=== PATIENT | female | born 1985 | race Two or more races ===

== ENCOUNTER 2021-12-08 08:18 | Observation (INO) | payer SELFPAY ==
[2021-12-08] MEDS ORDERED: PREN1TAB71 OR (10:41)
== END 2021-12-08 11:15 | disposition home or self-care (01) ==
LOC: LDRP 08:18 → UNDOADMOB 08:18 → LDRP 10:40
PROVIDERS: ADMIT Obstetrics & Gynecology; ATTEND Obstetrics & Gynecology
DX: O24.419 Gestational diabetes mellitus in pregnancy, unspecified control (principal); Z3A.32 32 weeks gestation of pregnancy
CPT/HCPCS: 59025; 76818; 81002; 82948; G0378

== ENCOUNTER 2021-12-12 08:00 | Observation (INO) | payer SELFPAY ==
[~2021-12-12] VITALS: Ht 165.1 cm; Wt 102.1 kg
[~2021-12-12 08:00] MED LIST: PREN1TAB71 OR
== END 2021-12-12 09:47 | disposition home or self-care (01) ==
LOC: UNDOADMOB 08:00 → LDRP 08:00
PROVIDERS: ADMIT Obstetrics & Gynecology; ATTEND Obstetrics & Gynecology
DX: O24.419 Gestational diabetes mellitus in pregnancy, unspecified control (principal); Z3A.33 33 weeks gestation of pregnancy
CPT/HCPCS: 59025; 76818; 81002; 82948; 82962; 94760; G0378

== ENCOUNTER 2022-01-21 04:17 | Inpatient (IN) | payer SELFPAY ==
[2022-01-20 10:29] LABS: Basophils # (auto) 0 10 ^3/uL (0-0.2); Basophils % (auto) 0.3 % (0.0-2.0); Eosinophils # (auto) 0.1 10 ^3/uL (0-0.8); Eosinophils % (auto) 0.6 % (0.0-7.0); Hematocrit 34.7 % (36.0-46.0); Hemoglobin 11.7 g/dL (12.2-16.2); Lymphocytes # (auto) 1.7 10 ^3/uL (0.4-5.4); Lymphocytes % (auto) 19.4 % (10.0-50.0); Mean Corpuscular Hemoglobin 30.6 pg (28.0-32.0); Mean Corpuscular Hgb Conc. 33.6 g/dL (32.0-36.0); Mean Corpuscular Volume 91.2 fL (80.0-100.0); Monocytes # (auto) 0.4 10 ^3/uL (0-1.3); Monocytes % (auto) 4.5 % (0.0-12.0); Neutrophils # (auto) 6.5 10 ^3/uL (1.6-8.6); Neutrophils % (auto) 75.2 % (37.0-80.0); Red Blood Cells 3.81 10^6/uL (4.0-5.20); Red Cell Distribution Width 13.7 % (11.8-14.3); White Blood Cell 8.7 10^3/uL (4.4-10.8)
[2022-01-20 10:45] LABS: Potassium 3.8 mmol/L (3.5-5.1)
[2022-01-20 10:53] LABS: Albumin 2.9 g/dL (3.4-5.0); Bilirubin, Total 0.6 mg/dL (0.2-1.0); Total Protein 6.7 g/dL (6.4-8.2)
[2022-01-20 10:53] LABS: Urine Bacteria FEW /hpf (None Seen); Urine Blood 2+ /uL (Negative); Urine Mucus FEW (None Seen); Urine Specific Gravity 1.019 (1.001-1.035); Urine WBC 3 /hpf (0 - 5)
[2022-01-20 10:58] LABS: INR 0.88 (0.9-1.15); Partial Thromboplastin Time 27.8 sec (24.6-33.4)
[2022-01-20 11:01] LABS: Alcohol, Urine < 3.0 mg/dL (0-10); Amphetamine Screen, Urine NEGATIVE (NEGATIVE); Barbiturate Scree,Urine NEGATIVE (NEGATIVE); Benzodiazephine Screen, Urine NEGATIVE (NEGATIVE); Cannabinoid Screen, Urine NEGATIVE (NEGATIVE); Cocaine Screen, Urine NEGATIVE (NEGATIVE); Opiate Scree,Urine NEGATIVE (NEGATIVE); Phencyclidine Screen, Urine NEGATIVE (NEGATIVE)
[~2022-01-21] VITALS: Ht 167.6 cm; Wt 102.1 kg
[2022-01-21] VITALS (13 sets, daily range): BP systolic 100–129; BP diastolic 62–80
[2022-01-21] MEDS ORDERED: ceFAZolin 1GM/50ML 50 ML IV ONE (04:30)
[2022-01-21] MEDS ORDERED: METOCLOPRAMIDE HCL 5MG/ml INJ 2ml VIAL IV ONE (04:30)
[2022-01-21] MEDS ORDERED: LACTATED RINGER'S 1,000 ML IV ONE (04:30)
[2022-01-21] MEDS: LACTATED RINGER'S 1,000 ML IV SCH ×2 (04:30→12:30)
[2022-01-21] MEDS ORDERED: SODIUM CITR/CITRIC ACID ORAL SOLN 30 ML PO ONE (04:30)
[2022-01-21 06:06] LABS: RPR Non Reactive (Non Reactive)
[2022-01-21] MEDS ORDERED: fentaNYL CITRATE 100 MCG/2 ML VL ONE (07:24)
[2022-01-21] MEDS ORDERED: MORPHINE SULF PF 5 MG/10 ML VIAL ONE (07:24)
[2022-01-21] MEDS ORDERED: ONDANSETRON HCL 4 MG/2 ML VIAL IV PRN ×5 (07:30→09:15)
[2022-01-21] MEDS ORDERED: ceFAZolin 1GM/50ML 50 ML IV SCH (07:30)
[2022-01-21] MEDS ORDERED: LACT. RINGERS/OXYTOCIN 20UNITS 1,000 ML IV ONE ×2 (07:30→09:00)
[2022-01-21] MEDS ORDERED: DOCU-94 PO (07:31)
[2022-01-21] MEDS ORDERED: HYDR-4902 PO (07:31)
[2022-01-21] MEDS ORDERED: IBUP800T27 PO (07:31)
[2022-01-21] MEDS ORDERED: ONDANSETRON HCL 4 MG/2 ML VIAL ONE (08:31)
[2022-01-21] MEDS ORDERED: oxyTOCIN 10 UNIT/ML 10ML VIAL IV ONE (08:56)
[2022-01-21] MEDS ORDERED: ONDANSETRON HCL 4 MG/2 ML VIAL IV ONE (08:56)
[2022-01-21] MEDS ORDERED: KETOROLAC TROMETH 60MG/2ML VIAL IM ONE (08:56)
[2022-01-21] MEDS ORDERED: GUM (CHEWING) 1 GUM CHEW CHEW ONE (09:00)
[2022-01-21] MEDS ORDERED: MORPHINE SULFATE 4 MG/ML SYR/VIAL IV PRN (09:00)
[2022-01-21] MEDS ORDERED: ePHEDrine SULFATE 50 MG/ML AMP IV PRN (09:00)
[2022-01-21] MEDS ORDERED: HYDROmorphone HCL 2 MG/ML VL/or syr IV PRN (09:15)
[2022-01-21] MEDS ORDERED: NALOXONE HCL 0.4 MG/ML VIAL IV PRN (09:15)
[2022-01-21] MEDS ORDERED: METOCLOPRAMIDE HCL 5MG/ml INJ 2ml VIAL IV PRN (09:15)
[2022-01-21] MEDS ORDERED: NALBUPHINE HCL 10 MG/1ml INJECTION SUBCUT ONE (09:15)
[2022-01-21] MEDS: ACETAMINOPHEN IV 1000 MG/100ML (10MG/ML) IV SCH (13:55)
[2022-01-21] MEDS: ceFAZolin 1GM/50ML 50 ML IV SCH (15:29)
[2022-01-21 22:37] LABS: Basophils # (auto) 0 10 ^3/uL (0-0.2); Basophils % (auto) 0.2 % (0.0-2.0); Eosinophils # (auto) 0 10 ^3/uL (0-0.8); Hematocrit 34.2 % (36.0-46.0); Hemoglobin 11.4 g/dL (12.2-16.2); Lymphocytes # (auto) 1.8 10 ^3/uL (0.4-5.4); Lymphocytes % (auto) 11.9 % (10.0-50.0); Mean Corpuscular Hemoglobin 30.3 pg (28.0-32.0); Mean Corpuscular Hgb Conc. 33.5 g/dL (32.0-36.0); Mean Corpuscular Volume 90.3 fL (80.0-100.0); Monocytes # (auto) 0.8 10 ^3/uL (0-1.3); Monocytes % (auto) 5.3 % (0.0-12.0); Neutrophils # (auto) 12.6 10 ^3/uL (1.6-8.6); Neutrophils % (auto) 82.6 % (37.0-80.0); Red Blood Cells 3.78 10^6/uL (4.0-5.20); Red Cell Distribution Width 13.6 % (11.8-14.3); White Blood Cell 15.3 10^3/uL (4.4-10.8)
[2022-01-22] VITALS (11 sets, daily range): BP systolic 105–138; BP diastolic 63–81
[2022-01-22] MEDS: ceFAZolin 1GM/50ML 50 ML IV SCH ×2 (00:27→08:29)
[2022-01-22] MEDS: LACTATED RINGER'S 1,000 ML IV SCH (00:29)
[2022-01-22] MEDS: ACETAMINOPHEN IV 1000 MG/100ML (10MG/ML) IV SCH ×2 (00:37→08:29)
[2022-01-22 07:05] LABS: Basophils # (auto) 0 10 ^3/uL (0-0.2); Basophils % (auto) 0.3 % (0.0-2.0); Eosinophils # (auto) 0 10 ^3/uL (0-0.8); Eosinophils % (auto) 0.4 % (0.0-7.0); Hematocrit 29.8 % (36.0-46.0); Lymphocytes # (auto) 2.1 10 ^3/uL (0.4-5.4); Lymphocytes % (auto) 18.4 % (10.0-50.0); Mean Corpuscular Hemoglobin 30.3 pg (28.0-32.0); Mean Corpuscular Hgb Conc. 33.6 g/dL (32.0-36.0); Mean Corpuscular Volume 90.2 fL (80.0-100.0); Monocytes # (auto) 0.7 10 ^3/uL (0-1.3); Monocytes % (auto) 5.9 % (0.0-12.0); Neutrophils # (auto) 8.5 10 ^3/uL (1.6-8.6); Red Cell Distribution Width 13.7 % (11.8-14.3); White Blood Cell 11.4 10^3/uL (4.4-10.8)
[2022-01-22] MEDS ORDERED: BISACODYL 10 MG RECT SUPP PR PRN (08:15)
[2022-01-22] MEDS ORDERED: HYDROcodone-ACET 5/325MG TAB PO PRN ×2 (08:15)
[2022-01-22] MEDS ORDERED: DOCUSATE CALCIUM 240 MG CAP PO SCH (10:00)
[2022-01-22] MEDS: DOCUSATE SOD 100 MG CAP PO SCH ×2 (10:56→22:00)
[2022-01-22] MEDS: IBUPROFEN 800 MG TAB PO PRN (15:01)
[2022-01-22] MEDS: SIMETHICONE 80 MG CHEWABLE TABLET PO SCH ×3 (15:01→22:00)
[2022-01-23 03:00] VITALS: BP 121/68
[2022-01-23] MEDS: IBUPROFEN 800 MG TAB PO PRN (04:27)
[2022-01-23] MEDS: SIMETHICONE 80 MG CHEWABLE TABLET PO SCH (06:25)
[2022-01-23 06:52] VITALS: BP 120/68
[2022-01-23 11:00] VITALS: BP 120/70
== END 2022-01-23 11:49 | disposition home or self-care (01) | DRG 788 ==
LOC: LDRP 04:17
PROVIDERS: ADMIT Obstetrics & Gynecology; ATTEND Obstetrics & Gynecology
PROC: 10D00Z1 Extraction of Products of Conception, Low, Open Approach (ICD-10-PCS; principal; 2022-01-21 07:30)
DX: O34.211 Maternal care for low transverse scar from previous cesarean delivery (principal); O24.429 Gestational diabetes mellitus in childbirth, unspecified control; Z3A.39 39 weeks gestation of pregnancy; Z37.0 Single live birth
CPT/HCPCS: 36415; 59025; 80053; 80307; 81001; 85025; 85610; 85730; 86592; 86850; 86900; 86901; 94760; 94762; 96361; 96365; 96366; G0378; J0131; J0690; J1885; J2405; J2590